=== PATIENT | female | born 1970 | race Caucasian/White ===

== ENCOUNTER 2017-07-13 10:00 | Emergency (ER) | payer OTHER ==
[2017-07-13 10:40] VITALS: BP 133/62; PULSE 78; RESP 18; TEMP 99.3
--- NOTE | 2017-07-13 11:56 | XR ---
EXAMINATION TYPE: XR wrist complete LT DATE OF EXAM: 07/13/2017 COMPARISON: NONE HISTORY: Pain TECHNIQUE: Four views submitted. FINDINGS: The osseous structures are intact. The joint spaces are preserved and there is no acute fracture or dislocation. There is a deformity of the scaphoid bone with a cystic geode noted. IMPRESSION: 1. No definite acute fracture or dislocation if symptoms persist, follow-up study in 7 to 10 days wo uld be suggested. Small cystic geode seen within the scaphoid. If symptoms persist correlate with MRI .
--- NOTE | 2017-07-13 12:28 | ED ---
Upper Extremity HPI - General Chief Complaint: Extremity Injury, Upper Stated Complaint: LEFT WRIST PAIN Time Seen by Provider: 07/13/17 11:12 Source: patient Mode of arrival: ambulatory Limitations: no limitations - History of Present Illness Initial Comments: This 47-year-old white female presents with a complaint of some left wrist pain. She states that this occurred last night when she was moving her pillow. She felt a pop at that time. She's had pain diffusely throughout the wrist since. She has more pain with extension of her wrist. She denies any trauma to that area. She apparently had something similar in the past. This was better after she immobilized with a splint for several days. She's never seen an orthopedic physician. She is right-handed. She denies any other complaints or modifying factors. - Related Data Home Medications Medication Instructions Recorded Confirmed No Known Home Medications [No 07/13/17 07/13/17 Known Home Medications] Allergies Allergy/AdvReac Type Severity Reaction Status Date / Time pineda Allergy Anaphylaxis Verified 07/13/17 11:20 Penicillins Allergy Rash/Hives Verified 07/13/17 11:20 Review of Systems ROS Statement: Those systems with pertinent positive or pertinent negative responses have been documented in the HPI. ROS Other: All systems not noted in ROS Statement are negative. Past Medical History Past Medical History: No Reported History History of Any Multi-Drug Resistant Organisms: None Reported Past Surgical History: Cholecystectomy Past Psychological History: No Psychological Hx Reported Smoking Status: Current every day smoker Past Alcohol Use History: Rare Past Drug Use History: None Reported General Exam Limitations: no limitations Extremities exam: Present: normal inspection, tenderness (There is tenderness present to the left wrist more so over the radial aspect but also diffusely. There is no swelling identified.), normal capillary refill, other (Good radial pulses noted bilaterally.) Neurological exam: Present: alert, oriented X3. Absent: motor sensory deficit Psychiatric exam: Present: normal affect, normal mood Skin exam: Present: intact. Absent: rash Course Vital Signs 07/13/17 10:37 Temperature 99.3 F Pulse Rate 78 Respiratory 18 Rate Blood Pressure 133/62 O2 Sat by Pulse 99 Oximetry Medical Decision Making - Medical Decision Making The patient was seen and examined. An x-ray was taken of the left wrist and no fracture or acute osseous abnormality is noted. The radiologist does note that there is a cyst in the left scaphoid. The recommend MRI for further workup if needed. She is placed in a 3 inch discussed some molded Ortho-Glass splint by myself. Excellent post-splint neurovascular status is identified. She is informed of her findings. The possibility of a hairline fracture in or around the cyst is certainly possible. It is felt that she would benefit from follow- up with orthopedics for further treatment and possible MRI scan. She is agreeable. She refuses anything for pain at this time and states that Motrin seems to work fine for her. She leaves in no identifiable distress. Disposition Clinical Impression: Left wrist sprain, Bone cyst Disposition: HOME SELF-CARE Condition: Good Instructions: Wrist Sprain (ED), Splint Care (ED) Additional Instructions: Please use Tylenol and/or Motrin as needed for pain. Please apply ice frequently for the next several days. Referrals: None,Stated [Primary Care Provider] - 1-2 days Odell Stroud DO [Doctor of Osteopathic Medicine] - 07/17/17 Time of Disposition: 12:27
== END 2017-07-13 12:41 | disposition home or self-care (01) ==
LOC: EC 10:00
DX: S63.502A Unspecified sprain of left wrist, initial encounter (principal); M85.642 Other cyst of bone, left hand; F17.200 Nicotine dependence, unspecified, uncomplicated; Z91.018 Allergy to other foods; Z88.0 Allergy status to penicillin; X50.9XXA Other and unspecified overexertion or strenuous movements or postures, initial encounter; Y93.89 Activity, other specified
CPT/HCPCS: 29125; 99283